=== PATIENT | female | born 1970 | race Caucasian/White ===

== ENCOUNTER 2024-09-16 14:02 | Emergency (ER) | payer OTHER ==
[~2024-09-16] VITALS: Ht 172.7 cm; Wt 72.6 kg
[2024-09-16 14:14] VITALS: BP 114/73; TEMP 98.2
[2024-09-16] MEDS ORDERED: RIVA10TA PO (16:18)
[2024-09-16 16:23] VITALS: O2SAT 97
== END 2024-09-16 16:24 | disposition home or self-care (01) ==
LOC: ER 14:09
DX: I82.611 Acute embolism and thrombosis of superficial veins of right upper extremity (principal); M79.601 Pain in right arm; R53.1 Weakness; R60.9 Edema, unspecified; Z85.3 Personal history of malignant neoplasm of breast; Z60.2 Problems related to living alone
CPT/HCPCS: 93971-TC